=== PATIENT | male | born 1995 | race Two or more races ===

== ENCOUNTER 2022-11-23 08:53 | Emergency (ER) | payer SELFPAY ==
[~2022-11-23] VITALS: Ht 170.2 cm; Wt 68.0 kg
[2022-11-23] MEDS ORDERED: HYDROcodone-ACET 5/325MG TAB PO ONE (10:15)
[2022-11-23] MEDS ORDERED: METH750T22 PO (10:51)
[2022-11-23] MEDS ORDERED: IBUP800T27 PO (10:51)
[2022-11-23 10:57] VITALS: BP 131/85
== END 2022-11-23 09:59 | disposition home or self-care (01) ==
LOC: ER 08:53 → EDBD 08:53 → ER 09:59
DX: S39.012A Strain of muscle, fascia and tendon of lower back, initial encounter (principal); S16.1XXA Strain of muscle, fascia and tendon at neck level, initial encounter; V43.52XA Car driver injured in collision with other type car in traffic accident, initial encounter; Y93.89 Activity, other specified; Y92.488 Other paved roadways as the place of occurrence of the external cause; Y99.8 Other external cause status
CPT/HCPCS: 72040; 72100